=== PATIENT | female | born 1960 | race Caucasian/White ===

== ENCOUNTER 2023-09-07 11:40 | Day surgery (SDC) | payer OTHER ==
[~2023-09-07] VITALS: Ht 170.2 cm; Wt 71.7 kg
[~2023-09-07 11:40] MED LIST: ESTRADIOL1 EAC9 TD; IBUPROFEN600 MG PO; MELATONIN1 M2; NASONEX17 GM NAS; SUDOGEST30 MG PO; TRAZODONE HCL50 MG PO; VENTOLIN HFA18 GM INH; VYVANSE20 MG PO; ZOLOFT50 MG PO
--- NOTE | 2023-09-07 14:02 | NUR ---
09/07/23 1402 Isabela Pizarro PT TO PACU SLEEPY BUT AROUSABLE, REPORTS SOME CRAMPING 05/02, ADVISED HER PASS THE AIR IN HER COLON AND CRAMPING SHOULD GET BETTER. PT MAINTAINS SATS ABOVE 95% ON ROOM AIR.
[2023-09-07 14:31] VITALS: BP 119/72
--- NOTE | 2023-09-08 19:46 | OR ---
[facility] [address] [place], [place] [address] Signed DATE OF OPERATION: 09/07/2023 SURGEON: Jamison Turner MD PREOPERATIVE DIAGNOSES: 1. Persistent mucoid discharge from rectum. 2. History of Clostridium difficile infection; recent retreatment with vancomycin. POSTOPERATIVE DIAGNOSES: Normal-appearing colon and ilium; mild edema/inflammation of rectum. PROCEDURE: Total colonoscopy to cecum with intubation of ileum and biopsy of ileum, colon and rectum. ANESTHESIA: Intravenous sedation; fentanyl 150 mcg, Versed 8 mg. INDICATION: This 63-year-old woman is a patient of Dr. Gustafson and last seen by me in 2014 for colonoscopy. She is here on the basis of minimal rectal bleeding and mucoid discharge. The patient has had a challenging year; nearly a year ago, had an upper respiratory infection treated with antibiotics and subsequent development of C difficile colitis, which was significant. She did have treatment with Flagyl. She has maintained a low FODMAP diet for self described irritable bowel syndrome. From February to May, she was doing well, though she developed a dental abscess related to dental implant surgery, ultimately undergoing antibiotic therapy once again. Recently, she has had mucoid discharge with minimal amounts of blood per rectum. Stool testing for C difficile was undertaken, but the specimen was considered ineligible for testing as it was "too solid." She did in fact undergo empiric treatment by me with vancomycin 125 mg p.o. q.i.d. and has nearly finished that prescription. Her symptoms have resolved it is noted. Notably she did not have profound diarrhea. She is admitted at this time to undergo colonoscopy on the basis of her symptoms. She understands the risk of bleeding, infection, and perforation. FINDINGS: The prep was excellent. Complete colonoscopy was undertaken of the cecum and intubation of the ileum was accomplished as well. The ileum had no sign of abnormality. She did have mild edema accounting as mild inflammation of her rectum, but this was not a Electronically Signed By: JAMISON TURNER MD 09/08/23 1946 PATIENT NAME: JOHNNYGOMEZ ROWE OPERATIVE REPORT DATE OF : 64 REPORT #: [id number] PHYSICIAN: JAMISON TURNER MD PCP: LIZZY GUSTAFSON MD REPORT IS CONFIDENTIAL AND NOT TO BE RELEASED WITHOUT AUTHORIZATION [facility] [address] [place] [id number] Signed pathologic process in appearance. There were no other findings of concern. DESCRIPTION OF PROCEDURE: The patient was brought to the endoscopy suite and placed in the lateral decubitus position, given intravenous sedation to the point of slurred speech and nystagmus. Digital rectal examination was normal. An Olympus video colonoscope was passed in the rectum and manipulated throughout the colon ultimately intubating the cecum itself. The ileocecal valve and appendiceal orifice were normal. With various manipulations, the scope was passed into the ileum. The ileum appeared normal. Scope was passed 5-10 cm into it showing no sign of inflammatory bowel problem. Biopsies were taken nevertheless. The scope was then withdrawn and biopsy was then taken of the cecum. Further withdrawal of the scope showed no sign of abnormality. Biopsies were taken of the left colon and ultimately the rectum to rule out occult colitis. Scope on retroflexed view showed no sign of abnormality, specifically no significant hemorrhoidal disease. The scope was removed and the patient was taken to the recovery room in good condition. CONCLUDING DIAGNOSIS: Essentially normal-appearing colon, rectum and ilium. PLAN: Expectant management at this time. The patient is self described as having irritable bowel syndrome, which may be the underlying issue. As regards infection related to C difficile, there appears to be no sign of similar finding endoscopically at this time. She will return to the ongoing care of Dr. Gustafson. MD RYAN Martinez/MARIA RL /[id number] cc: Lizzy Gustafson MD Electronically Signed By: JAMISON TURNER MD 09/08/23 1946 PATIENT NAME: JOHNNY STARRCHALINOGOMEZJUAN MACKAY OPERATIVE REPORT DATE OF : 64 REPORT #: [id number] PHYSICIAN: JAMISON TURNER MD PCP: LIZZY GUSTAFSON MD REPORT IS CONFIDENTIAL AND NOT TO BE RELEASED WITHOUT AUTHORIZATION [address] [place], [place] [address] Signed Copies: ~ Electronically Signed By: JAMISON TURNER MD 09/08/231945 PATIENT NAME: GOMEZ ALMONTE OPERATIVE REPORT DATE OF : 64 REPORT #: [id number] PHYSICIAN: JAMISON TURNER MD PCP: LIZZY GUSTAFSON MD REPORT IS CONFIDENTIAL AND NOT TO BE RELEASED WITHOUT AUTHORIZATION
--- NOTE | 2023-09-11 13:45 | PATH ---
[facility] [address] [place], [place] [address] Signed SPECIMEN(S): A CECUM BIOPSY SPECIMEN(S): B TERMINAL ILEUM BIOPSY SPECIMEN(S): C DESCENDINGCOLON BIOPSY SPECIMEN(S): D RECTUM SPECIMEN SOURCE: A. CECUM BIOPSY B. TERMINAL ILEUM BIOPSY C. DESCENDINGCOLON BIOPSY D. RECTUM CLINICAL HISTORY: A. Cecum biopsy. B. Terminal ileum biopsy. C. Descending colon biopsy. D. Rectum. Pre: Mucoid discharge, bloating, C. Diff. 12/15. Post: Mild proctitis. FINAL PATHOLOGIC DIAGNOSIS: A. Cecum biopsy: - Benign colonic mucosa, negative for specific diagnostic abnormality. B. Terminal ileum biopsy: - Benign small bowel-type mucosa, negative for specific diagnostic abnormality. C. Descending colon biopsy: - Benign colonic mucosa, negative for pathologic inflammation or significant epithelial atypia. D. Rectum, biopsy: - Benign colonic mucosa, negative for pathologic inflammation. JVR:sarah MICROSCOPIC EXAMINATION: Histologic sections of all submitted blocks are examined by light microscopy. These findings, together with the gross examination, support the pathologic diagnosis. GROSS DESCRIPTION: A. The specimen, labeled and designated "Saadia Toth, cecum biopsy," is received in formalin and consists of one kumar soft tissue fragment, 0.3 cm. Entirely submitted in (A1). B. The specimen, labeled and designated "Saadia Toth, terminal ileum biopsy," is received in formalin and consists of three kumar soft tissue fragments, ranging from 0.2-0.6 cm. Entirely submitted in (B1). PATIENT NAME: GOMEZ ALMONTE PATHOLOGY DATE OF : 64 REPORT #: [id number] PHYSICIAN: GEOVANNY LAYNE PCP: MARGAUX LAURA MD REPORT IS CONFIDENTIAL AND NOT TO BE RELEASED WITHOUT AUTHORIZATION [facility] [address] [place], [place] [address] Signed C. The specimen, labeled and designated "Saadia Toth, descending colon biopsy," is received in formalin and consists of one kumar soft tissue fragment, 0.4 cm. Entirely submitted in (C1). D. The specimen, labeled and designated "Saadia Toth, rectum biopsy," is received in formalin and consists of four kumar soft tissue fragments, ranging from 0.1-0.5 cm. Entirely submitted in (D1). VB (under the direct supervision of a pathologist) The Gross Description was prepared using a voice recognition system. The report was reviewed for accuracy; however, sound-alike word errors, addition and/or deletions may occur. If there is any question about this report, please contact Client Services. PERFORMING LABORATORY: Technical component was performed by [facility], [address] [place] [id number] (CLIA# [id number]). Professional interpretation was performed by [facility], [address] [place] [id number] (CLIA#: [id number]). Diagnostician: Mir Arrieta MD Pathologist Electronically Signed 09/11/2023 Copies: ~ PATIENT NAME: GOMEZ ALMONTE PATHOLOGY DATE OF : 64 REPORT #: [id number] PHYSICIAN: GEOVANNY PATHOLOGY PCP: MARGAUX LAURA MD REPORT IS CONFIDENTIAL AND NOT TO BE RELEASED WITHOUT AUTHORIZATION
== END 2023-09-07 14:48 | disposition home or self-care (01) ==
LOC: DS 11:40 → OPS 11:40 → DS 14:30 → OPS 14:30
PROVIDERS: ATTEND Surgery
PROC: 0DBP8ZX Excision of Rectum, Via Natural or Artificial Opening Endoscopic, Diagnostic (ICD-10-PCS; 2023-09-07)
PROC: 0DBB8ZX Excision of Ileum, Via Natural or Artificial Opening Endoscopic, Diagnostic (ICD-10-PCS; 2023-09-07)
PROC: 0DBM8ZX Excision of Descending Colon, Via Natural or Artificial Opening Endoscopic, Diagnostic (ICD-10-PCS; 2023-09-07)
PROC: 0DBH8ZX Excision of Cecum, Via Natural or Artificial Opening Endoscopic, Diagnostic (ICD-10-PCS; principal; 2023-09-07 13:00)
DX: K58.0 Irritable bowel syndrome with diarrhea (principal); R15.2 Fecal urgency; F41.8 Other specified anxiety disorders; Z90.711 Acquired absence of uterus with remaining cervical stump; Z88.1 Allergy status to other antibiotic agents; Z79.899 Other long term (current) drug therapy
CPT/HCPCS: 99153; G0500; J2250; J3010; J7121